=== PATIENT | female | born 1945 | race Caucasian/White ===

== ENCOUNTER 2025-01-07 07:36 | Outpatient (REF) | payer OTHER, SELFPAY ==
--- OUTSIDE RECORDS SUMMARY | 2024-01-28 10:06 | XMS_ITS | Encounter Summary ---
Author Organization [facility] Address [address] [place] [address] Care Team Providers Care [employer] French Teacher Name Role Phone Lee Lindsay MD Primary Care Provider Encounter Details Date Type Department Care Team (Late st Contact Info) Description 01/28/2024 10:06 AM EDT Hospital Encounter TH HISTORIC ENCOUNTERS EASTERN CONVERSION ONLY Mayuri Warner MD [address] [place] [address] Social History Tobacco Use Types Packs/Day Years Used Date Smoking Tobacco: Never Smokeless Tobacco: Never Alcohol Use Standard Drinks/Week Comments Yes 1 (1 standard drink = 0.6 oz pur e alcohol) rare Interpersonal Safety Answer Date Record ed Physical Abuse 12/18/2024 Verbal Abuse 12/18/2024 Comments Unknown Sex and Gender Information [...] COVID infection and shingles after traveling to [place] few weeks ago PAST MEDICAL HISTORY: Past [...] LDH beta-2 microglobulin prior to next visit Mayuri Warner MD documented in this encounter Plan of Treatment Upcoming Encounters Date Type Department Care Team (Late st Contact Info) Description 01/19/2025 10:30 AM EDT Office Visit [facility] Hematology Oncology [address] [place] [phone] Mayuri Warner MD [address] [place] [address] 04/01/2025 11:00 AM EST Office Visit Gastroenterology - [place] 175 [facility] [address] [facility] [address] [place] [phone] Ashli Rey NP [address] [address] documented as of this encounter Visit Diagnoses Not on filedocumented in this encounter Care Teams [employer] French Teacher Relationship Specialty Start Date End Date Lee Lindsay MD [address] [address] PCP - General Internal Medicine 04/26/18 documented as of this encounter
--- NOTE | ~2025-01-07 | XR_ITS ---
CLINICAL HISTORY: M25.559 - Pain in unspecified hip 1 view pelvis Comparison: None provided Findings: No acute fracture or dislocation. Mild degenerative changes of both hips. Mild degenerative changes of the pubic symphysis. Enthesopathy at the right anterior iliac bone. Phleboliths project over the pelvis. IMPRESSION: 1. Mild degenerative changes of both hips. 2. Mild degenerative changes of the pubic symphysis. This document has been electronically signed by: David Johnson DO on 01/08/2025 14:13:24
--- OUTSIDE RECORDS SUMMARY | 2025-01-07 07:42 | XMS_ITS ---
Author Name [facility] Organization Unknown History of Medication Use Medication Directions Dispensed Refills Start Date End Date Stat us meloxicam (Mobic) 7.5 mg tablet Take 1 tablet (7.5 mg total) by mouth 1 (one) time each day. 04/11/2024 active diclofenac (VOLTAREN) 1 % topical gel Apply 4 g topically 2 times daily. 11/19/2023 active Allergies Allergen Reaction Severity Comment Documented Date Source Statu s METHYLPREDNISOLONE Facial redness 02/05/2019 [facility] active PREDNISONE Angry Other reaction(s): Feeling Irritable 01/11/2016 [facility] active Problems Problem Status Onset Date Problem Type Date of Resoluti on Source Elevated blood pressure, situational active 2018-12-06 [facility]Act [facility] Knee pain, right active 2021-03-01 ProblemAct [facility] Parkinson's disease active 2024-03-17 ProblemAct [facility] Coarse tremors active 2018-07-02 ProblemAct [facility] Immunizations Vaccine Date Source Lot Number Status [employer] SARS-CoV-2 COVID -19, vector-nr, rS-Ad26, preservative free 06/26/2020 [facility] [id number] completed Pneumococcal conjugate 13 va lent (Prevnar 13, PCV13) 2mo and older 02/22/2016 [facility] [id number] complet ed Zoster Live 06/10/2010 [facility] [id number] completed Care Team Organization Name Specialty Phone Email Start Date End Da te [facility] SHANTAL NICOLE Primary Care 02/21/2022 12/03/19 24
--- OUTSIDE RECORDS SUMMARY | 2025-01-07 07:42 | XMS_ITS | Clinical Summary ---
Author Organization [facility] Address [address] [facility] [address] [place] [phone] Phone Care Team Providers Care Supervisor Aircraft Maintenance Name Role Phone Lee Lindsay MD Primary Care Provider [phone] Shady Nova MD Unavailable Allergies Active Allergy Reactions Criticality Noted Date Comments Prednisone Feeling Irritable Low 08/29/2019 Medications sertraline (ZOLOFT) 25 MG tablet Take 25 mg by mouth daily. Active therapeutic multivitamin tablet Take 1 tablet by mouth daily. Active cholecalciferol (VITAMIN D3) 25 MCG (1,000 unit) tablet Take 1,000 Units by mouth daily. Active rasagiline (AZILECT) 1 mgIndications:Parki nson's disease without dyskinesia or fluctuating manifestations Take 1 tablet (1 mg total) by mouth daily. 90 tablet 3 5 Active carbidopa-levodopa (SINEMET CR) 25-100 mg per CR tablet Take 1 tablet by mouth 2 (two) times a day. 180 tablet 3 5 Active Active Problems Problem Noted Date Diagnosed Date Parkinson's disease 06/29/2020 Encounters Date Type Department Care Team Description 10/15/2024 12:00 PM EDT Telemedicine [facility] Department of Neurology [address] [facility], 8th Floor, [address] [place] [address] Cuba Baker MD, PhD Parkinson's disease without dyskinesia or fluctuating manifestations (Primary Dx); Anxiety 10/09/2024 Telephone [facility] Department of Neurology [address] [place] [address], [address] Floor, [address] [place] [address] Cuba Baker MD, PhD from Last 3 Months Immunizations Immunization Administration Dates Next Due COVID-19 (Pre-02/05) Abdulkadir Vaccine, rS-Ad26, P F 06/26/2020 Social History Tobacco Use Types Packs/Day Years Used Date Smoking Tobacco: Never Smokeless Tobacco: Never Tobacco Cessation:Counseling Given: Not Answered Education Answer Date Recorded Are you interested in more education? Not on ann e 08/20/2022 Are you concerned about learning? Not on file 08/20/2022 No 08/20/2022 No 08/20/2022 Digital Access Answer Date Recorded No 09/10/2022 No 09/10/2022 Reliable internet access at home? Not on file 09/10/2022 Device with a working camera? Not on file Comments Unknown Sex and Gender Information Value Date Recorded Sex Assigned at Not on file Legal Sex Female 6:36 PM EST Gender Identity Not on file Sexual Orientation Not on file Last Filed Vital Signs Vital Sign Reading Time Taken Comments Blood Pressure 155/77 05/06/2024 12:56 PM EST Pulse 73 05/06/2024 12:56 PM EST Temperature 36.2 C (97.1 F) 02/07/2023 12:55 PM EDT Respiratory Rate - - Oxygen Saturation 97% 05/06/2024 12:56 PM EST Inhaled Oxygen Concentration - - Weight 57.2 kg (126 lb) 05/06/2024 12:56 PM EST Height 157.8 cm (5' 2.13 ) 02/07/2023 12:55 PM E DT Body Mass Index 22.95 02/07/2023 12:55 PM EDT Plan of Treatment Upcoming Encounters Date Type Department Care Team (Late st Contact Info) Description 04/23/2025 2:30 PM EST Telemedicine [facility] Department of Neurology [address] [place] [address], [address] Floor, [address] [place] [address] Cuba Baker MD, PhD [address] [place] [id number] [email or web address] Maintenance Due Date Last Done Comments Adult Td,Tdap Booster 1945 DEPRESSION SCREENING 1957 HEPATITIS C SCREENING 06/26/1963 PNEUMOCOCCAL VACCINES (50+ years) (1 of 1 - PCV) 06/26/1995 OSTEOPOROSIS SCREENING INITI AL (ONE-TIME) 2010 ZOSTER VACCINES (2 of 3) 08/05/2010 06/10/2010 RSV VACCINE (1 - 1-dose 75+ series) 2020 INFLUENZA VACCINE (#1) 2024 COVID-19 VACCINE (3 - 2024-2 6 season) 2024 05/13/2021, 06/26/2020 LIPID PANEL 07/29/2029 07/29/2024, 07/12/2023 SMOKING STATUS SCREENING (On ce After 26 Yrs) Completed 05/06/2024 HEPATITIS A VACCINES Aged Out No long er eligible based on patient's age to complete this topic HIB VACCINES Aged Out No longer eligi ble based on patient's age to complete this topic MENINGOCOCCAL VACCINES (ACWY) Aged Out No longer eligible based on patient's age to complete this topic MENINGOCOCCAL VACCINES (B) Aged Out N o longer eligible based on patient's age to complete this topic Medical Devices Not on file Insurance [employer] RE[employer] MEDICARE PREFERRED PPO REPLACEMENT [employer] MEDICARE PREFERRED PPO REPLACEMENT [employer]PLAC[employer]PL[employer]PL[employer] Care Teams Supervisor Aircraft Maintenance Relationship Specialty Start Date End Date Lee Lindsay MD [address] [address] PCP - General Internal Medicine 02/10/19 Shady Nova MD 175 [place] [address] Neurology 07/27/22 Additional Source Comments The information contained in this document represents components of the legal health record. It is not the complete legal health record.[facility]
--- OUTSIDE RECORDS SUMMARY | 2025-01-07 07:42 | XMS_ITS | Clinical Summary ---
Author Organization [facility] Address [address] [place] [address] Care Team Providers Care Flight Security Specialist Name Role Phone Lee Lindsay MD Primary Care Provider Unavailab le Allergies Active Allergy Reactions Criticality Noted Date Comments Prednisone Low 07/23/2018 Medications Medication Sig Dispensed Refills Start Date End Date Status Rasagiline Mesylate (AZILECT) 1 MG TABS tablet Take 1 tablet (1 mg total) by mouth daily. 0 Active sertraline (ZOLOFT) 25 MG tablet Take 0.5 tablets (12.5 mg total) by mouth daily. 0 Active Multiple Vitamin (MULTI-VITAMIN DAILY PO) Take by mouth. 0 Active vitamin D3 (VITAMIN D3) 25 MCG (1000 UT) tablet Take 1 tablet (1,000 Units total) by mouth daily. 0 Active carbidopa (LODOSYN) 25 MG tablet Take 1 tablet by mouth 2 (two) times a day. 0 Active Active Problems No known active problems Social History Tobacco Use Types Packs/Day Years Used Date Smoking Tobacco: Never Smokeless Tobacco: Never Alcohol Use Standard Drinks/Week Comments Yes 1 (1 standard drink = 0.6 oz pur e alcohol) Sex and Gender Information Value Date Recorded Sex Assigned at Not on file Gender Identity Not on file Sexual Orientation Not on file Job Start Date Occupation Industry Not on file Not on file Not on file Last Filed Vital Signs Vital Sign Reading Time Taken Comments Blood Pressure 123/68 01/28/2024 10:16 AM EDT Pulse 75 01/28/2024 10:16 AM EDT Temperature 36.8 C (98.3 F) 01/28/2024 10:16 AM EDT Respiratory Rate - - Oxygen Saturation 97% 01/28/2024 10:16 AM EDT Inhaled Oxygen Concentration - - Weight 56.9 kg (125 lb 6.4 oz) 01/28/2024 10:16 AM EDT Height 157.5 cm (5' 2 ) 01/28/2024 10:16 AM EDT Body Mass Index 22.94 01/28/2024 10:16 AM EDT Plan of Treatment Health Maintenance Due Date Last Done Comments Hepatitis C Screening 1945 Depression Screening 1957 Preventative Health Evaluation 06/26/1963 DTap / Tdap / Td (1 - Tdap) 1964 Shingrix-Zoster Vaccine (1 of 2) 06/26/1995 Fall Risk Assessment 2010 Osteoporosis Screening (DEXA Scan) 2010 Pneumococcal Vaccine (2 of 2 - PPSV23 or PCV20) 02/21/2017 02/22/2016 RSV Adult > 60+ Yrs or Pregn ant (1 - 1-dose 75+ series) 2020 COVID-19 Vaccine (2 - 2024-2 6 season) 2024 06/26/2020 Influenza Vaccine (#1) 2024 Hepatitis B Vaccines Aged Out No long er eligible based on patient's age to complete this topic RSV Ped < 20 months Aged Out No longe r eligible based on patient's age to complete this topic Care Teams Flight Security Specialist Relationship Specialty Start Date End Date Lee Lindsay MD PCP - General Internal Medicine 07/23/18
--- OUTSIDE RECORDS SUMMARY | 2025-01-07 07:42 | XMS_ITS | Clinical Summary ---
Author Organization [facility] Address [address] [place] [address] Care Team Providers Care Manager Of Software Development Name Role Phone Lee Lindsay MD Primary Care Provider [phone] Allergies Active Allergy Reactions Criticality Noted Date Comments Prednisone Low 01/11/2016 Angry Other reaction(s): Feeling Irritable Medications MULTIVITAMIN ORAL Take by mouth daily. Active CHOLECALCIFEROL , VITAMIN D3, ORAL Take 1,000 Units by mouth daily. Active sertraline (ZOLOFT) 25 mg tablet Take 1 tablet (25 mg total) by mouth 1 (one) time each day. 90 tablet 1 5 Active rasagiline (AZILECT) 1 mg tablet 5 Active carbidopa-levod opa CR (SINEMET CR) 25-100 mg per CR tablet 5 Active polyethylene glycol (Golytely) 236-22.74-6.74 -5.86 gram solution Take 4L by mouth once for one dose. May substitue any PEG. Starting at 2PM the day before your procedure drink 1 8oz glasses at your own pace until you complete half of the gallon. Finish 2nd half of the gallon at 8PM. 4000 mL 5 Active bisacodyL (DULCOLAX) 5 mg EC tablet Take 2 tablets by mouth right before beginning bowel prep. See instructions provided by the office 2 tablet 5 Active LORazepam (ATIVAN) 0.5 mg tablet TAKE 1 TAB 1 HOUR PRIOR TO PROCEDURE. DO NOT TAKE AND DRIVE Active Active Problems Problem Noted Date Diagnosed Date COVID-19 12/10/2024 Osteopenia of spine 07/23/2024 Trochanteric bursitis of right hip 05/07/2024 Assessment & Plan (08/18/2024 3:34 PM EDT): Ongoing pain in the right hip area, failed cortisone shot due to pain .plans to do an IR guided procedure. 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 Vitamin D deficiency 03/29/2017 Encounters Date Type Department Care Team Description 12/26/2024 Telephone Gastroenterology - [address] [address] Cecile Velasquez MD 12/18/2024 12:45 PM EDT Anesthesia Event [facility] Endoscopy [address] [place] [address] Krishna Nicole MD 12/18/2024 12:17 PM EDT - 12/18/2024 11:59 PM EDT Hospital Encounter [facility] Endoscopy [address] [place] [address] Krishna Nicole MD Sampson, Joanna, MD Couture, Alison, CRNA Nausea; Dyspepsia; Personal history of hyperplastic colon polyps Discharge Disposition: Home or Self Care 12/12/2024 9:40 AM EDT Office Visit Gastroenterology - [address] [facility] [address] [place] [address] Cecile Velasquez MD Dyspepsia (Primary Dx); Colon cancer screening 12/12/2024 Telephone Gastroenterology - [address] [place] [phone] Cecile Velasquez MD 12/04/2024 Telephone Gastroenterology - [address] [address] Cecile Velasquez MD from Last 3 Months Immunizations Name Administration Dates Next Due Kilopass/WEISSENHAUS SARS-CoV-2 COVID -19, vector-nr, rS-Ad26, preservative free 06/26/2020 Pneumococcal conjugate 13 va lent (Prevnar 13, PCV13) 2mo and older 02/22/2016 Zoster Live 06/10/2010 Surgical History Surgery Date Site/Laterality Comments CYST REMOVAL PROCEDURE:CYST REMOVAL;COMMENT:from right breast COLONOSCOPY 04/16/2015 - 05/16/2015 Dr. 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 DX:Monoclonal B-cell lymphocytosis Vitamin D deficiency 03/29/2017 DX:Vitamin D deficiency Covid-19 DX:COVID-19 Monoclonal B-cell lymphocytosis DX:Monoclonal B-cell lymphocytosis Hypertension DX:Hypertension Hyperlipidemia DX:Hyperlipidemi a Hematuria DX:Hematuria Cervicalgia DX:Cervicalgia Parkinsonian syndrome (CMS/H CC V24, CMS/HCC V28) DX:Parkinsonian syndrome (HC C) Colon polyp Family History Medical History Relation Name Comments No Known Problems Brother No Known Problems Daughter No Known Problems Father No Known Problems Mother No Known Problems Other No Known Problems Sister No Known Problems Son Autoimmune disease Neg Hx Breast cancer Neg Hx Colon cancer Neg Hx Coronary artery disease Neg Hx Diabetes Neg Hx Heart attack Neg Hx Heart failure Neg Hx Hyperlipidemia Neg Hx Hypertension Neg Hx Mental illness Neg Hx Prostate cancer Neg Hx Sleep apnea Neg Hx Thyroid disease Neg Hx Relation Name Status Comments Brother Daughter Father Mother Other Sister Son Social History Tobacco Use Types Packs/Day Years Used Date Smoking Tobacco: Never Smokeless Tobacco: Never Tobacco Cessation:Counseling Given: Not Answered Alcohol Use Standard Drinks/Week Comments Yes 1 (1 standard drink = 0.6 oz pur e alcohol) rare Interpersonal Safety Answer Date Record ed Physical Abuse 12/18/2024 Verbal Abuse 12/18/2024 Comments Unknown Sex and Gender Information Value Date Recorded Sex Assigned at Not on file Legal Sex Female 4:33 PM EST Gender Identity Not on file Sexual Orientation Not on file Obstetrics History Last Filed Vital Signs Vital Sign Reading Time Taken Comments Blood Pressure 111/60 12/18/2024 1:32 PM EDT Pulse 69 12/18/2024 1:32 PM EDT Temperature 36.1 C (97 F) 12/18/2024 1:12 PM EDT Respiratory Rate 14 12/18/2024 1:32 PM EDT Oxygen Saturation 98% 12/18/2024 1:32 PM EDT Inhaled Oxygen Concentration - - Weight 56.7 kg (125 lb) 12/18/2024 12:33 PM EDT Height 160 cm (5' 3 ) 12/18/2024 12:33 PM EDT Body Mass Index 22.14 12/18/2024 12:33 PM EDT Plan of Treatment Upcoming Encounters Date Type Department Care Team (Late st Contact Info) Description 01/19/2025 10:30 AM EDT Office Visit [facility] Hematology Oncology [address] [place] [phone] Mayuri Warner MD [address] [place] [address] 04/01/2025 11:00 AM EST Office Visit Gastroenterology - [place] [facility] [address] [address] Ashli Rey NP [address] [address] Health Maintenance Due Date Last Done Comments DTaP,Tdap,and Td Vaccines (1 - Tdap) 1964 Zoster Vaccines (1 of 2) 08/05/2010 06/10/2010 Pneumococcal Vaccine: 50+ Years (2 of 2 - PPSV23) 02/21/2017 02/22/2016 Hepatitis C Screening 03/10/2020 Social Influencers of Health Screening 03/10/2020 RSV Immunization Adult Patients (1 - 1-dose 75+ series) 2020 COVID-19 Vaccine (3 - season) 2024 05/13/2021, 06/26/2020 Influenza Vaccine (#1) 2024 Hypertension/CHF/CAD Annual BMP Blood Test 07/29/2025 07/29/2024, 07/12/2023 Medicare Annual Wellness Visit 08/18/2025 08/18/2024 Falls Risk Assessment 12/18/2025 12/18/2024 Cholesterol Screening (Lipid Panel) 07/29/2029 07/29/2024, 07/12/2023 Osteoporosis Screening (Bone Density Screening) 05/03/2032 05/03/2022, 04/19/2020 Breast Cancer Screening Discontinued 11/20/19 24, 10/19/2022, 09/20/2021, Additional history exists Depression Screening Completed 08/18/2024 Colorectal Cancer Screening: Colonoscopy Discontinued 12/18/2024 HIB Vaccines Aged Out No longer eligi ble based on patient's age to complete this topic HPV Vaccines Aged Out No longer eligi ble based on patient's age to complete this topic Hepatitis A Vaccines Aged Out No long er eligible based on patient's age to complete this topic Hepatitis B Vaccines Aged Out No long er eligible based on patient's age to complete this topic IPV Vaccines Aged Out No longer eligi ble based on patient's age to complete this topic MMR Vaccines Aged Out No longer eligi ble based on patient's age to complete this topic Meningococcal ACWY Vaccine Aged Out N o longer eligible based on patient's age to complete this topic Meningococcal B Vaccine Aged Out No l onger eligible based on patient's age to complete this topic RSV Immunization Patients Under 20 months Aged Out No longer eligible based on patient's age to complete this topic Varicella Vaccines Aged Out No longer eligible based on patient's age to complete this topic Procedures Procedure Name Priority Date/Time Associated Diagnosis Comments COLONOSCOPY Routine 12/18/2024 1:11 PM EDT Personal history of hyperplastic colon polyps EGD Routine 12/18/2024 1:11 PM EDT Nausea Dyspepsia TISSUE EXAM Routine 12/18/2024 12:51 PM EDT Nausea Dyspepsia Personal history of hyperplastic colon polyps COMPREHENSIVE METABOLIC PANEL Routine 07/29/2024 9:35 AM EDT Preventative health care LIPID PANEL WITH REFLEX TO DIRECT LDL Routine 07/29/2024 9:35 AM EDT Preventative health care [facility] SCREENING DIGITAL Routine 11/20/2023 10:36 AM EDT Encounter for screening mammogram for malignant neoplasm of breast [facility] DEXA AXIAL SKELETON Routine 05/03/2022 11:57 AM EST Encounter for screening for osteoporosis from Last 3 Months or Most Recently Relevant to Health Maintenance Results * COLONOSCOPY Anesthesia - MAC; [facility] ENDOSCOPY (12/18/2024 1:11 PM EDT) Anatomical Region Laterality Modality Endoscopy 12/18/2024 12:5 6 PM EDT Impressions 12/18/2024 1:13 PM EDT - The examined portion of the ileum was normal. - One 6 mm polyp in the cecum, removed with a cold snare. Resected and retrieved. - Two 1 to 4 mm polyps in the transverse colon, removed with a cold snare. Resected and retrieved. - One 2 mm polyp in the descending colon, removed with a cold snare. Resected and retrieved. - Diverticulosis in the sigmoid colon. - Internal hemorrhoids. Recommendation: - Await pathology results. - Repeat colonoscopy is not recommended for surveillance. Narrative 12/18/2024 1:13 PM EDT [facility] GI Patient Name: Virginia Gonzalez Procedure Date: 12/18/2024 12:56 PM Date of : 1945 Age: 79 Gender: Female Note Status: Finalized Attending MD: Cecile Velasquez MD, Procedure Date No Time: 12/18/2024 Procedure: Colonoscopy Indications: High risk colon cancer surveillance: Personal history of colonic polyps Providers: Cecile Velasquez MD Referring MD: Lee Lindsay MD Medicines: Propofol per Anesthesia Complications: No immediate complications. Estimated Blood Loss: Estimated blood loss: none. Procedure: Pre-Anesthesia Assessment: - ASA Grade Assessment: III - A patient with severe systemic disease. After I obtained informed consent, the scope was passed under direct vision. Throughout the procedure, the patient's blood pressure, pulse, and oxygen saturations were monitored continuously.The Colonoscope was introduced through the anus and advanced to the terminal ileum. The colonoscopy was performed without difficulty. The patient tolerated the procedure well. The quality of the bowel preparation was excellent. Findings: The perianal and digital rectal examinations were normal. The terminal ileum appeared normal. A 6 mm polyp was found in the cecum. The polyp was sessile. The polyp was removed with a cold snare. Resection and retrieval were complete. Two sessile polyps were found in the transverse colon. The polyps were 1 to 4 mm in size. These polyps were removed with a cold snare. Resection and retrieval were complete. A 2 mm polyp was found in the descending colon. The polyp was sessile. The polyp was removed with a cold snare. Resection and retrieval were complete. A few small-mouthed diverticula were found in the sigmoid colon. Internal hemorrhoids were found during retroflexion. The hemorrhoids were Grade I (internal hemorrhoids that do not prolapse). Procedure Code(s): --- Professional --- 29655, Colonoscopy, flexible; with removal of tumor(s), polyp(s), or other lesion(s) by snare technique Diagnosis Code(s): --- Professional --- Z86.010, Personal history of colonic polyps D12.0, Benign neoplasm of cecum D12.4, Benign neoplasm of descending colon D12.3, Benign neoplasm of transverse colon (hepatic flexure or splenic flexure) CPT copyright 2020 [employer]. All rights reserved. The codes documented in this report are preliminary and upon gambling dealer review may be revised to meet current compliance requirements. Cecile Velasquez MD 12/18/2024 1:13:31 PM This report has been signed electronically.Cecile Velasquez MD Number of Addenda: 0 Note Initiated On: 12/18/2024 12:56 PM Scope In: Scope Out: Endoscopy Department at [facility] - [address] [place] [phone] Procedure Note Cecile Velasquez MD - 12/18/2024 [facility] GI Patient Name: Virginia Gonzalez Procedure Date: 12/18/2024 12:56 PM Date of : 1945 Age: 79 Gender: Female Note Status: Finalized Attending MD: Cecile Velasqeuz MD, Procedure Date No Time: 12/18/2024 Procedure: Colonoscopy Indications: High risk colon cancer surveillance: Personalhistory of colonic polyps Providers: Cecile Velasquez MD Referring MD: Lee Lindsay MD Medicines: Propofol per Anesthesia Complications: No immediate complications. Estimated Blood Loss: Estimated blood loss: none. Procedure: Pre-Anesthesia Assessment: - ASA Grade Assessment: III - A patient with severe systemic disease. After I obtained informed consent, the scope was passed under direct vision. Throughout theprocedure, the patient's blood pressure, pulse, and oxygen saturations were monitored continuously.The Colonoscope was introduced through the anus and advanced to the terminal ileum. The colonoscopy was performed without difficulty. The patient tolerated the procedure well. The quality of the bowel preparation was excellent. Findings: The perianal and digital rectal examinations were normal. The terminal ileum appeared normal. A 6 mm polyp was found in the cecum. The polyp was sessile. The polyp was removed with a cold snare. Resection and retrieval were complete. Two sessile polyps were found in the transversecolon. The polyps were 1 to 4 mm in size. These polypswere removed with a cold snare. Resection and retrieval were complete. A 2 mm polyp was found in the descending colon. The polyp was sessile. The polyp was removed with acold snare. Resection and retrieval were complete. A few small-mouthed diverticula were found in the sigmoid colon. Internal hemorrhoids were found duringretroflexion. The hemorrhoids were Grade I (internal hemorrhoids that do not prolapse). Procedure Code(s): --- Professional --- 71877, Colonoscopy, flexible; with removal of tumor(s), polyp(s), or other lesion(s) by snare technique Diagnosis Code(s): --- Professional --- Z86.010, Personal history of colonic polyps D12.0, Benign neoplasm of cecum D12.4, Benign neoplasm of descending colon D12.3, Benign neoplasm of transverse colon (hepatic flexure or splenic flexure) CPT copyright 2020 [employer]. All rights reserved. The codes documented in this report are preliminary and upon gambling dealer reviewmay be revised to meet current compliance requirements. Cecile Velasquez MD 12/18/2024 1:13:31 PM This report has been signed electronically.Cecile Velasquez MD Number of Addenda: 0 Note Initiated On: 12/18/2024 12:56 PM Scope In: Scope Out: Endoscopy Department at [facility] - [address] [place] [phone] IMPRESSION: - The examined portion of the ileum was normal. - One 6 mm polyp in the cecum, removed with a cold snare. Resected and retrieved. - Two 1 to 4 mm polyps in the transverse colon, removed with a cold snare. Resected andretrieved. - One 2 mm polyp in the descending colon, removedwith a cold snare. Resected and retrieved. - Diverticulosis in the sigmoid colon. - Internal hemorrhoids. Recommendation: - Await pathology results. - Repeat colonoscopy is not recommended for surveillance. Cecile Velasquez MD GI~PROCEDURE ORDERABLES Final Result * EGD Anesthesia - MAC; [facility] ENDOSCOPY (12/18/2024 1:11 PM EDT) Anatomical Region Laterality Modality Endoscopy 12/18/2024 12:4 0 PM EDT Impressions 12/18/2024 12:56 PM EDT - Normal esophagus. - Multiple fundic gland polyps. - Normal mucosa was found in the entire stomach. Biopsied. - Normal examined duodenum. Recommendation: - Continue present medications. - Await pathology results. Narrative 12/18/2024 12:56 PM EDT [facility] GI Patient Name: Virginia Gonzalez Procedure Date: 12/18/2024 12:40 PM Date of : 1945 Age: 79 Gender: Female Note Status: Finalized Attending MD: Cecile Velasquez MD, Procedure Date No Time: 12/18/2024 Procedure: Upper GI endoscopy Indications: Dyspepsia, Nausea Providers: Cecile Velasquez MD Referring MD: Lee Lindsay MD Medicines: Propofol per Anesthesia Complications: No immediate complications. Estimated Blood Loss: Estimated blood loss: none. Procedure: Pre-Anesthesia Assessment: - ASA Grade Assessment: III - A patient with severe systemic disease. After obtaining informed consent, the endoscope was passed under direct vision. Throughout the procedure, the patient's blood pressure, pulse, and oxygen saturations were monitored continuously.The Olympus Gastroscope was introduced through the mouth, and advanced to the second part of duodenum. The upper GI endoscopy was accomplished without difficulty. The patient tolerated the procedure well. Findings: The esophagus was normal. Multiple small sessile fundic gland polyps were found in the gastric body. Normal mucosa was found in the entire examined stomach. Biopsies were taken with a cold forceps for histology. The examined duodenum was normal. Procedure Code(s): --- Professional --- 18905, Esophagogastroduodenoscopy, flexible, transoral; with biopsy, single or multiple Diagnosis Code(s): --- Professional --- K31.7, Polyp of stomach and duodenum R10.13, Epigastric pain R11.0, Nausea CPT copyright 2020 [employer]. All rights reserved. The codes documented in this report are preliminary and upon gambling dealer review may be revised to meet current compliance requirements. Cecile Velasquez MD 12/18/2024 12:55:56 PM This report has been signed electronically.Cecile Velasquez MD Number of Addenda: 0 Note Initiated On: 12/18/2024 12:40 PM Scope In: Scope Out: Endoscopy Department at [facility] - [address] [place] [phone] Procedure Note Cecile Velasquez MD - 12/18/2024 [facility] GI Patient Name: Virginia Gonzalez Procedure Date: 12/18/2024 12:40 PM Date of : 1945 Age: 79 Gender: Female Note Status: Finalized Attending MD: Cecile Velasquez MD, Procedure Date No Time: 12/18/2024 Procedure: Upper GI endoscopy Indications: Dyspepsia, Nausea Providers: Cecile Velasquez MD Referring MD: Lee Lindsay MD Medicines: Propofol per Anesthesia Complications: No immediate complications. Estimated Blood Loss: Estimated blood loss: none. Procedure: Pre-Anesthesia Assessment: - ASA Grade Assessment: III - A patient with severe systemic disease. After obtaining informed consent, the endoscope was passed under direct vision. Throughout theprocedure, the patient's blood pressure, pulse, and oxygen saturations were monitored continuously.The Olympus Gastroscope was introduced through the mouth, and advanced to the second part of duodenum. The upperGI endoscopy was accomplished without difficulty. The patient tolerated the procedure well. Findings: The esophagus was normal. Multiple small sessile fundic gland polyps werefound in the gastric body. Normal mucosa was found in the entire examined stomach. Biopsies were taken with a cold forcepsfor histology. The examined duodenum was normal. Procedure Code(s): --- Professional --- 19706, Esophagogastroduodenoscopy, flexible, transoral; with biopsy, single or multiple Diagnosis Code(s): --- Professional --- K31.7, Polyp of stomach and duodenum R10.13, Epigastric pain R11.0, Nausea CPT copyright 2020 [employer]. All rights reserved. The codes documented in this report are preliminary and upon gambling dealer reviewmay be revised to meet current compliance requirements. Cecile Velasquez MD 12/18/2024 12:55:56 PM This report has been signed electronically.Cecile Velasquez MD Number of Addenda: 0 Note Initiated On: 12/18/2024 12:40 PM Scope In: Scope Out: Endoscopy Department at [facility] - [address] [place] [id number] IMPRESSION: - Normal esophagus. - Multiple fundic gland polyps. - Normal mucosa was found in the entire stomach. Biopsied. - Normal examined duodenum. Recommendation: - Continue present medications. - Await pathology results. Cecile Velasquez MD GI~PROCEDURE ORDERABLES Final Result * Tissue exam (12/18/2024 12:51 PM EDT) Final Diagnosis A. Gastric, Body, random biopsies: - Gastric antral mucosa with rare activity. - Gastric oxyntic mucosa with no specific pathologic changes. - No Helicobacter pylori organisms are morphologically identified. B. Large Intestine, Cecum, polyp: - Sessile serrated lesion (polyp). C. Large Intestine, Transverse Colon, polyps x2: - Sessile serrated lesion (polyp). - Tubular adenoma. D. Large Intestine, Left/Descending Colon, polyp: - Hyperplastic polyp. 12/19/2024 10:55 AM EDT [facility] Gross Description A. Gastric, Body, random biopsies: Labeled gastric body random . Received in formalin are four irregular beal mucosal tissue fragments, ranging from 0.1 cm to 0.3 cm in greatest dimension, which are wrapped in paper and submitted in toto in one cassette, four pieces, multiple levels on one side. B. Large Intestine, Cecum, polyp: Labeled colon cecum polyp . Received in formalin are seven irregular disrupted beal mucosal tissue fragments, ranging from 0.1 cm to 0.4 cm in greatest dimension, which are wrapped in paper and submitted in toto in one cassette, seven pieces, multiple levels on one slide. C. Large Intestine, Transverse Colon, polyp x 2: Labeled trans colon polyp x 2 . Received in formalin are nine irregular beal mucosal tissue fragments, ranging from less than 0.1 cm to 0.3 cm in greatest dimension, which are wrapped in paper and submitted in toto in two cassettes, four pieces and five pieces, respectively, multiple levels in each slide. D. Large Intestine, Left/Descending Colon, polyp: Labeled descending colon polyp . Received in formalin is a 0.7 cm irregular beal mucosal tissue fragment which is wrapped in paper and submitted in toto in one cassette, one piece, multiple levels on one slide. VICTOR MANUEL 12/19/2024 10:55 AM T [facility] Disclaimer Unless otherwise specified, all tissue is 10% NB formalin fixed and paraffin embedded. 12/19/2024 10:55 AM [facility] Tissue Gastric corpus structure / Unknown 12/18/2024 12:51 PM EDT 12/18/2024 3:02 PM EDT Tissue specimen (specimen) Cecum structure / Unknown 12/18/2024 1:03 PM EDT 12/18/2024 3:02 PM EDT Tissue specimen (specimen) Transverse colon structure / Unknown 12/18/2024 1:07 PM EDT 12/18/2024 3:02 PM EDT Tissue specimen (specimen) Descending colon structure / Unknown 12/18/2024 1:07 PM EDT 12/18/2024 3:02 PM EDT us Cecile Velasquez MD LAB PATHOLOGY ORDERABLES Final Result [facility] [address] [place] [address], [place] [phone] * (ABNORMAL) Lipid panel with reflex to direct LDL (07/29/2024 9:35 AM EDT) Cholesterol 207(H) 0 - 200 mg/dL LAB CHEMISTRY METHOD 07/29/2024 11:49 AM [facility] Triglycerides 162(H) 0 - 150 mg/dL LAB CHEMISTRY METHOD 07/29/2024 11:49 AM [facility] HDL 44 >=40 mg/dL LAB CHEMISTRY METHOD 07/29/2024 11:49 AM [facility] LDL Calculated 131(H) 0 - 100 mg/dL LAB CHEMISTRY METHOD 07/29/2024 11:49 AM [facility] VLDL Cholesterol Rommel 32.4 mg/dL LAB CHEMISTRY METHOD 07/29/2024 11:49 AM [facility] Non HDL Chol. (LDL+VLDL) 163(H) <145 mg/dL LAB CHEMISTRY METHOD 07/29/2024 11:49 AM [facility] Chol/HDL Ratio 4.7(H) 0.0 - 4.4 LAB CHEMISTRY METHOD 07/29/2024 11:49 AM [facility] Blood Venous blood specimen / Unknown Venipuncture / Unknown 07/29/2024 9:35 AM EDT 07/29/2024 11:29 AM EDT Lee Lindsay MD LAB BLOOD ORDERABLES Final Resul t [facility] [address] [place] [address], [place] [phone] * Comprehensive metabolic panel (07/29/2024 9:35 AM EDT) Sodium 141 133 - 145 mmol/L LAB CHEMISTRY METHOD 07/29/2024 11:49 AM [facility] Potassium 4.4 3.5 - 5.5 mmol/L LAB CHEMISTRY METHOD 07/29/2024 11:49 AM [facility] Chloride 106 96 - 110 mmol/L LAB CHEMISTRY METHOD 07/29/2024 11:49 AM [facility] CO2 32 21 - 32 mmol/L LAB CHEMISTRY METHOD 07/29/2024 11:49 AM [facility] Anion Gap 3 3 - 11 LAB CHEMISTRY METHOD 07/29/2024 11:49 AM [facility] Glucose 88 70 - 100 mg/dL LAB CHEMISTRY METHOD 07/29/2024 11:49 AM [facility] BUN 18 5 - 25 mg/dL LAB CHEMISTRY METHOD 07/29/2024 11:49 AM [facility] Creatinine 0.68 0.50 - 1.10 mg/dL LAB CHEMISTRY METHOD 07/29/2024 11:49 AM [facility] eGFR 89 >=60 mL/min/1. 73m2 LAB CHEMISTRY METHOD 07/29/2024 11:49 AM [facility] Comment:Calculation based on the Chronic Kidney Disease Epidemiology Collaboration (CKD-EPI) equation refit without adjustment for race. BUN/Creatinine Ratio 26.5 LAB CHEMISTRY METHOD 07/29/2024 11:49 AM [facility] Calcium 9.3 8.5 - 10.5 mg/dL LAB CHEMISTRY METHOD 07/29/2024 11:49 AM [facility] AST (SGOT) 22 10 - 42 unit/L LAB CHEMISTRY METHOD 07/29/2024 11:49 AM [facility] ALT (SGPT) 17 10 - 60 unit/L LAB CHEMISTRY METHOD 07/29/2024 11:49 AM [facility] Alkaline Phosphatase 110 42 - 121 unit/L LAB CHEMISTRY METHOD 07/29/2024 11:49 AM [facility] Total Protein 6.6 6.0 - 8.0 g/dL LAB CHEMISTRY METHOD 07/29/2024 11:49 AM [facility] Albumin 3.9 3.2 - 5.0 g/dL LAB CHEMISTRY METHOD 07/29/2024 11:49 AM [facility] Total Bilirubin 0.7 0.0 - 1.4 mg/dL LAB CHEMISTRY METHOD 07/29/2024 11:49 AM [facility] Blood Venous blood specimen / Unknown Venipuncture / Unknown 07/29/2024 9:35 AM EDT 07/29/2024 11:29 AM EDT us Lee Lindsay MD LAB BLOOD ORDERABLES Final Resul t [facility] [address] [place] [address], * ADORE SCREENING DIGITAL (11/20/2023 10:36 AM EDT) Anatomical Region Laterality Modality Mammography 11/20/2023 10:0 8 AM EDT Narrative 11/20/2023 10:36 AM EDT [facility] Diagnostic Imaging Department [address] [place] [address] Patient: VIRGINIA GONZALEZ Ama /Age/Sex: 1945 - 78 - F Unit#: [id number] Location/Status: SPDIMAM/REG CLI Mnemonic/Ordering Site: [facility] Ordering Physician: BHAVIN VASQUEZ MD Adore Screening Digital - 11/20/23 - 1025 Report Status:Signed HISTORY: The patient is a 78-year-old female presenting for routine screening mammography. The patient underwent excisional biopsy of the right breast in 2005, pathology benign. FINDINGS: Full-field digital mammography of the breasts bilaterally consisting of tomosynthesis in MLO and CC projection is performed in the [employer] 2000-D unit. Computer aided detection utilizing the iCAD system was utilized. The breasts are again seen to be composed of a combination of fatty and fibroglandular elements (scattered areas of fibroglandular density, category B density as calculated with iReveal Volpara software), as also demonstrated on prior studies most recently 10/19/2022 and most remotely 02/21/2016. Bilateral vascular calcifications, as well as a few scattered benign punctate calcifications, are stable. There is no suspicious cluster of microcalcifications, mass, or area of architectural distortion. There is no skin thickening or nipple retraction. IMPRESSION: No mammographic evidence of malignancy. A negative mammogram in the presence of a clinically suspicious palpable abnormality does not preclude the possibility of malignancy or alter the indications for biopsy. BIRADS Code Class 2: Benign Finding PQRI CPT II 3342F Code 14887, 23812 PQRI 225 CPT II 7025F Dictating Physician: DAYTON BOURGEOIS MD Electronically Signed by: DAYTON BOURGEOIS MD Dic Date/Time: 11/20/23 1032 Sign date/Time: 11/20/23 1036 Procedure Note Dayton Bourgeois MD - 01/30/2024 [facility] Diagnostic Imaging Department [address] [place] [address] Patient: VIRGINIA GONZALEZ /Age/Sex: 1945 - 78 - F Unit#: [id number] Location/Status: [facility] Mnemonic/Ordering Site: [facility] Ordering Physician: BHAVIN VASQUEZ MD Adore Screening Digital - 11/20/23 - 1025 Report Status:Signed HISTORY: The patient is a 78-year-old female presenting for routinescreening mammography. The patient underwent excisional biopsy of the right breastin 2005, pathology benign. FINDINGS: Full-field digital mammography of the breasts bilaterallyconsisting of tomosynthesis in MLO and CC projection is performed in the [employer] 2000-D unit. Computer aided detection utilizing the iCAD system wasutilized. The breasts are again seen to be composed of a combination of fatty and fibroglandular elements (scattered areas of fibroglandular density,category B density as calculated with [employer] Energypara software), as also demonstratedon prior studies most recently 10/19/2022 and most remotely 02/21/2016.Bilateral vascular calcifications, as well as a few scattered benign punctate calcifications, are stable. There is no suspicious cluster of microcalcifications, mass, or area of architectural distortion. There isno skin thickening or nipple retraction. IMPRESSION: No mammographic evidence of malignancy. A negative mammogram in the presence of a clinically suspicious palpable abnormality does not preclude the possibility of malignancy or alter the indications for biopsy. BIRADS Code Class 2: Benign Finding PQRI CPT II 3342F Code 67266, 70717 PQRI 225 CPT II 7025F Dictating Physician: DAYTON BOURGEOIS MD Electronically Signed by: DAYTON BOURGEOIS MD Dic Date/Time: 11/20/23 1032 Sign date/Time: 11/20/23 1036 Bhavin Vasquez MD IMG BI PROCEDURES Final Result * [facility] DEXA AXIAL SKELETON (05/03/2022 11:57 AM EST) Anatomical Region Laterality Modality Mammography 05/03/2022 11:0 5 AM EST Narrative 05/03/2022 11:57 AM EST [facility] Diagnostic Imaging Department [address] [place] [address] Patient: ROMARIOVIRGINIA Serrato D.O.B./Age/Sex: 1945 - 76 - F Unit#: [id number] Location/Status: [facility]/REG CLI Mn[facility]onic[facility] Ordering Physician: BHAVIN VASQUEZ MD Adore Dexa Axial Skeleton - 01/18/23 - 1130 HISTORY: The patient is a 76-year-old postmenopausal female with clinical concern for metabolic bone disease. FINDINGS: Dual energy x-ray absorptiometry of the lumbar spine and femurs is performed. The mean bone mineral density at L1-L4 is 1.272 gm/cm2 which is 108% of that of young normals and 132% of that of age matched controls. This yields a T-score of 0.8 and a Z-score of 2.6 and there is therefore no evidence of osteoporosis or osteopenia here. The mean bone mineral density of the femurs bilaterally is 0.911 gm/cm2 which is 90% of that of young normals and 118% of that of age matched controls. This yields a T-score of -0.8 and a Z-score of 1.1 and there is therefore no evidence of osteoporosis or osteopenia here. However, the T-score of the right femoral neck is -1.5 and that of the left femoral neck is -1.2 which is diagnostic of osteopenia. IMPRESSION: 1. Osteopenia. There has been an increase of 4.8% in bone mineral density in the lumbar spine since the prior examination of 04/19/2020. There has been an increase of 2.6% in bone mineral density in the right femur and an increase of 3.3% in bone mineral density in the left femur. 2. FRAX analysis yields a 10-year probability of major osteoporotic fracture of 18.3% and a 10-year probability of hip fracture of 3.6%. Code 01895 Dictating Physician: DAYTON BOURGEOIS MD Electronically Signed by: DAYTON BOURGEOIS MD Dic Date/Time: 05/03/22 1155 Sign date/Time: 05/03/22 1157 Procedure Note Dayton Bourgeois MD - 05/18/2023 [facility] Diagnostic Imaging Department [address] [place] [id number] Patient: VIRGINIA GONZALEZ./Age/Sex: 1945 - 76 - F Unit#: [id number] Location/Status: [facility]/REG I [facility] Ordering Physician: BHAVIN VSAQUEZ MD Adore Dexa Axial Skeleton - 05/03/221129 HISTORY: The patient is a 76-year-old postmenopausal female withclinical concern for metabolic bone disease. FINDINGS: Dual energy x-ray absorptiometry of the lumbar spine and femursis performed. The mean bone mineral density at L1-L4 is 1.272 gm/cm2 which is108% of that of young normals and 132% of that of age matched controls. Thisyields a T-score of 0.8 and a Z-score of 2.6 and there is therefore no evidenceof osteoporosis or osteopenia here. The mean bone mineral density of the femurs bilaterally is 0.911 gm/wd2wpexx is 90% of that of young normals and 118% of that of age matched controls.This yields a T-score of -0.8 and a Z-score of 1.1 and there is therefore noevidence of osteoporosis or osteopenia here. However, the T-score of the rightfemoral neck is -1.5 and that of the left femoral neck is -1.2 which is diagnosticof osteopenia. IMPRESSION: 1. Osteopenia. There has been an increase of 4.8% in bone mineral densityin the lumbar spine since the prior examination of 04/19/2020. There has beenan increase of 2.6% in bone mineral density in the right femur and anincrease of 3.3% in bone mineral density in the left femur. 2. FRAX analysis yields a 10-year probability of major osteoporoticfracture of 18.3% and a 10-year probability of hip fracture of 3.6%. 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
== END 2025-01-07 07:37 | disposition home or self-care (01) ==
LOC: HO.HOSX 07:36
PROVIDERS: Visit Provider Orthopaedic Surgery
DX: M25.551 Pain in right hip (principal); M54.50 Low back pain, unspecified
CPT/HCPCS: 72170

== ENCOUNTER 2025-01-07 11:34 | Outpatient (AMB) | payer OTHER, SELFPAY ==
--- NOTE | 2025-01-07 11:49 | MHC.OFFVIS ---
Vital Signs 01/07/25 11:58 Height 5 ft 2 in Weight 125 lb BMI 22.9 Intake Visit Reasons: Right hip pain Intake Note: Virginia is a 79 year old woman who presents with complaints of pain along the lateral aspect of her right hip. The patient states that she did have an ultrasound-guided cortisone injection given into her right hip in August of 2024 which gave her several months worth of relief. The patient states that she has had an MRI which showed ?a labral tear?. She has been going to physical therapy in [place] which gives her mild relief. She denies any back pain. Allergies prednisone Adverse Reaction (Intermediate, Verified 01/07/25 11:58) Agitated Medication List - Last Reconciled 01/07/25 by Robert Klein MD carbidopa-levodopa 25-100 mg ER 1 tab PO BID rasagiline 1 mg PO DAILY sertraline 25 mg PO DAILY Physical Exam Vital Signs: BMI result Body Mass Index 22.9 Extrem Other: Right hip examination shows slightly decreased range of motion compared to her left, mild pain with range of motion, mild tenderness over her iliotibial band, no overlying skin lesions Results Reviewed Results Reviewed: X-rays of the patient's bilateral hips taken today show mild diffuse joint space narrowing, no acute bony abnormalities Assessment & Plan Assessment & Plan (1) Hip pain: Code(s): M25.559 - Pain in unspecified hip Category: Medical (2) Pain of right hip: Code(s): M25.551 - Pain in right hip Plan Ms. Gonzalez presents with right hip pain most likely due to iliotibial band syndrome as well as possible tearing of her right hip joint labrum. The patient does not wish to go back to [facility] for another injection. Thus, I will refer her to our pain management clinic here at [facility]. The patient may be a candidate for further injections. No surgery is indicated at this time. She will follow up with me on an as-needed basis. Feel free to call me at any time should questions regarding her orthopedic management arise. I spent 22 minutes in reviewing the patient's records and imaging studies, seeing the patient and documenting in the medical record. Orders: Orders XR lumbar spine 2-3V Today M54.50 - Low back pain, unspecified XR pelvis 1-2V Today M25.559 - Pain in unspecified hip Referrals Pain Management Referral M25.559 - Pain in unspecified hip Coding Level of Care Code New Pt Level 3 (30645) Complex EM visit Add On G2211 Diagnoses Hip pain M25.559 Pain of right hip M25.551
[2025-01-07 11:58] VITALS: BMI 22.9
== END 2025-01-07 12:34 | disposition home or self-care (01) ==
LOC: HO.HOS 11:35
PROVIDERS: Visit Provider Orthopaedic Surgery
DX: M25.559 Pain in unspecified hip (principal); M25.551 Pain in right hip
CPT/HCPCS: 99203

== ENCOUNTER → 2025-01-07 11:37 | Outpatient (BNV) | payer OTHER, SELFPAY | PROVIDERS: Visit Provider Family Medicine | DX: M16.0 Bilateral primary osteoarthritis of hip (principal) | CPT/HCPCS: 72170 ==

== ENCOUNTER 2025-02-06 10:20 | Outpatient (AMB) | payer OTHER, SELFPAY ==
--- OUTSIDE RECORDS SUMMARY | 2024-01-28 10:06 | XMS_ITS | Encounter Summary ---
Author Organization [facility] Address [address] [place] [address] Care Team Providers Care Yard Stocker Name Role Phone Lee Lindsay MD Primary Care Provider [phone] Encounter Details Date Type Department Care Team (Late st Contact Info) Description 01/28/2024 10:06 AM EDT Hospital Encounter TH HISTORIC ENCOUNTERS EASTERN CONVERSION ONLY Mayuri Warner MD [address] [place] [address] Social History Tobacco Use Types Packs/Day Years Used Date Smoking Tobacco: Never Smokeless Tobacco: Never Alcohol Use Standard Drinks/Week Comments Yes 1 (1 standard drink = 0.6 oz pur e alcohol) rare Interpersonal Safety Answer Date Record ed Physical Abuse Unrecognized value 12/18/2024 Verbal Abuse Unrecognized value 12/18/2024 Comments Unknown Sex and Gender Information Value Date Recorded Sex Assigned at Not on file Legal Sex Female 4:33 PM EST Gender Identity Not on file Sexual Orientation Not on file documented as of this encounter Last Filed Vital Signs Vital Sign Reading Time Taken Comments Blood Pressure 123/68 01/28/2024 10:16 AM EDT Sitting Left arm Pulse 75 01/28/2024 10:16 AM EDT Temperature - - Respiratory Rate - - Oxygen Saturation - - Inhaled Oxygen Concentration - - Weight 56.9 kg (125 lb 6.4 oz) 01/28/2024 10:16 AM EDT Height 157.5 cm (5' 2 ) 01/28/2024 10:1 6 AM EDT Body Mass Index 22.94 01/28/2024 10:16 AM EDT documented in this encounter Progress Notes * Mayuri Warner MD - 01/28/2024 10:15 AM EDT CHIEF COMPLAINT: Follow-up IDENTIFIER:Virginia Gonzalez is a 78 y.o. female. HPI: 78-year-old female, who has low-grade lymphoproliferative process, patient also have multiple other medical issues, patient recently incidentally found to have mild splenomegaly so referredto me for further evaluation. Patient recent labs are well within desired range ROS: No anorexia or weight loss No early satiety No chest pain shortness of breath No significant GI/ symptom She has been working on her Parkinson's, much better symptoms Patient had COVID infection and shingles after traveling to [place] few weeks ago PAST MEDICAL HISTORY: Past Medical History: Diagnosis Date ??? Cervicalgia ??? Hematuria ??? Hyperlipidemia ??? Hypertension ??? Monoclonal B-cell lymphocytosis ??? Parkinsonian syndrome (HCC) SOCIAL HISTORY: Social History Tobacco Use ??? Smoking status: Never ??? Smokeless tobacco: Never Substance Use Topics ??? Alcohol use: Yes Alcohol/week: 1.0 standard drink of alcohol Types: 1 Glasses of wine per week FAMILY HISTORY: Noncontributory Current Outpatient Medications: ??? carbidopa (LODOSYN) 25 MG tablet, Take 1 tablet by mouth 2 (two) times a day., Disp: , Rfl: ??? Multiple Vitamin (MULTI-VITAMIN DAILY PO), Take by mouth., Disp: , Rfl: ??? Rasagiline Mesylate (AZILECT) 1 MG TABS tablet, Take 1 tablet (1 mg total) by mouth daily., Disp: , Rfl: ??? sertraline (ZOLOFT) 25 MG tablet, Take 0.5 tablets (12.5 mg total) by mouth daily., Disp: , Rfl: ??? vitamin D3 (VITAMIN D3) 25 MCG (1000 UT) tablet, Take 1 tablet (1,000 Units total) by mouth daily., Disp: , Rfl: You are allergic to the following Date Reviewed: 01/28/2024 Allergen Reactions Prednisone Not Noted PHYSICAL EXAM: BP 123/68 (BP Location: Left arm) Pulse 75 Temp 98.3 ??F (36.8 ??C) (Temporal) Ht 5' 2 (1.575 m) Wt 56.9 kg (125 lb 6.4 oz) SpO2 97% BMI 22.94 kg/m?? ECOG 0-1 APPEARANCE: Alert and oriented in no acute distress EYES: nonicteric sclera pink conjunctiva ORAL CAVITY: No mucositis or thrush NECK: Neck supple, no cervical or supraclavicular adenopathy, HEART: normal S1 and S2 LUNG: clear to auscultation bilaterally LYMPH NODES: No palpable superficial adenopathy ABDOMEN: soft, nontender and no organomegaly appreciated EXTREMITIES: No edema erythema or tenderness No petechiae ecchymosis purpura LABS: WBC 12.2, hemoglobin 13.1 g, hematocrit 41.2% and platelet count 219 CT scan showed mild splenomegaly IMPRESSION: SNOMED CT(R) 1. Leukocytosis, unspecified type LEUKOCYTOSIS 2. Splenomegaly SPLENOMEGALY Patient is a 78-year-old female, who has multiple issues including Parkinson's disease, patient has very mild lymphocytosis may be very low-grade lymphoproliferative disease, patient incidentally found to have mild splenomegaly, which is consistent with her lymphoproliferative disease. I gave her reassurance that she does not need any therapeutic intervention. I explained patient detailabout low-grade lymphoproliferative process, most of these patient never needed any therapeutic intervention. PLAN: I will see her back in a year, I will check CBC with differential, LDH beta-2 microglobulin prior to next visit Mayuir Warner MD documented in this encounter Plan of Treatment Upcoming Encounters Date Type Department Care Team (Late st Contact Info) Description 03/23/2025 11:00 AM EST Office Visit Internal Medicine - [place] [address] [facility] [address] [place] [phone] Lee Lindsay MD 175 [facility] [address] [place] [address] 04/01/2025 11:00 AM EST Office Visit Gastroenterology - [address] [facility] [address] [facility] [address] [place] [phone] Ashli Rey NP [address] [address] 01/19/2026 10:45 AM EDT Office Visit [facility] Hematology Oncology [address] [place] [address] Mayuri Warner MD [address] [place] [address] documented as of this encounter Visit Diagnoses Not on filedocumented in this encounter Care Teams Yard Stocker Relationship Specialty Start Date End Date Lee Lindsay MD [address] [address] PCP - General Internal Medicine 04/26/18 documented as of this encounter
--- NOTE | 2025-02-06 10:41 | MHC.OFFVIS ---
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 The hip pain is primarily located on the right side, associated with the greater trochanter and iliotibial band. The patient reports that the pain has improved over time but remains a concern, especially when engaging in activities such as ballroom dancing and walking. The patient has a history of receiving a cortisone injection in the bursa, which initially provided four months of relief. However, the pain returned upon resuming physical activities, prompting further evaluation and consideration of additional interventions. The patient has undergone physical therapy, which has provided some improvement, but the pain recurs with increased activity. She has been advised to continue with stretching and strengthening exercises to manage the symptoms. 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 This condition has been managed with prior cortisone injections, which provided significant relief in the past. Pain Description - Onset: Pain primarily located on the right side, associated with the greater trochanter and iliotibial band - Quality: Described as a persistent ache with occasional throbbing - Exacerbating factors: Ballroom dancing, walking, and other physical activities - Relieving factors: Cortisone injections, physical therapy, and use of an IT band support Physical Exam - Appears afebrile. - Alert and oriented. - Mood and affect appropriate. - Follows and participates in conversation appropriately. - Pain along R GT and thigh Pain Management - Affect: Pain impacts activities such as ballroom dancing and walking - Analgesia: Cortisone injections have been used with initial relief; considering platelet-rich plasma injections - Activities of Daily Living: Pain limits physical activities, requiring modifications Physical Exam Vital Signs: Last Vital Signs Pulse 91 02/06/25 10:42 Resp 16 02/06/25 10:42 BP 126/72 02/06/25 10:42 Pulse Ox 94 02/06/25 10:42 Oxygen Delivery Method Room Air 02/06/25 10:42 BMI result Body Mass Index 23.0 Assessment & Plan Assessment & Plan (1) Greater trochanteric pain syndrome: Code(s): M25.559 - Pain in unspecified hip Category: Medical Plan Plan Patient was informed and verbally consented to the use of an ambient scribe for clinic note documentation during this visit. 1. Trochanteric Bursitis - Consideration of repeat cortisone injection if pain persists, with the option to perform the procedure in-office to reduce costs. Pretreat with valium for procedural anxiolysis. - Discussion of platelet-rich plasma injections as an alternative, though not covered by insurance. - Continued physical therapy focusing on stretching and strengthening exercises. 2. Iliotibial Band Syndrome - Use of IT band support to alleviate symptoms during physical activity. - Consideration of cortisone injection if symptoms persist. 3. Arthritis In The Lower Spine - Previous cortisone injections have provided relief; consider repeat injections if necessary. Discussion Notes I discussed with the patient the management options for her right hip pain, including the possibility of a repeat cortisone injection, which can be done in-office to minimize costs. We also explored the option of platelet-rich plasma injections, which are not covered by insurance but may offer longer-term benefits for tendon and soft tissue issues. The importance of continuing physical therapy with a focus on stretching and strengthening was emphasized to help manage her symptoms. Patient Instructions - Continue with physical therapy exercises focusing on stretching and strengthening. - Consider using an IT band support during physical activities to alleviate symptoms. - Schedule an appointment for a cortisone injection if pain persists. - Discuss with the doctor if interested in platelet-rich plasma injections. Medications: New diazepam (Valium) 5 mg PO ONCE PRN 1 tab 0RF sleep Coding Level of Care Code New Pt Level 4 (60991) Diagnoses Greater trochanteric pain syndrome M25.559
[2025-02-06 10:42] VITALS: BP 126/72; PULSE 91; RESP 16; O2SAT 94; BMI 23.0
--- OUTSIDE RECORDS SUMMARY | 2025-02-06 11:47 | XMS_ITS | Clinical Summary ---
Author Organization [facility] [place] Address [address] [place] [address] Care Team Providers Care Small Parts Assembler Name Role Phone Lee Lindsay MD Primary Care Provider [phone] Allergies Active Allergy Reactions Criticality Noted Date Comments Prednisone Low 01/11/2016 Angry Other reaction(s): Feeling Irritable Medications MULTIVITAMIN ORAL Take by mouth daily. Active CHOLECALCIFERO L, VITAMIN D3, ORAL Take 1,000 Units by mouth daily. Active sertraline (ZOLOFT) 25 mg tablet Take 1 tablet (25 mg total) by mouth 1 (one) time each day. 90 tablet 1 05/05/19 25 Active rasagiline (AZILECT) 1 mg tablet 06/23/19 25 Active carbidopa-levo dopa CR (SINEMET CR) 25-100 mg per CR tablet 07/01/19 25 Active polyethylene glycol (Golytely) 236-22.74-6.74 -5.86 gram solution Take 4L by mouth once for one dose. May substitue any PEG. Starting at 2PM the day before your procedure drink 1 8oz glasses at your own pace until you complete half of the gallon. Finish 2nd half of the gallon at 8PM. 4000 mL 12/05/19 25 025 Discontinued bisacodyL (DULCOLAX) 5 mg EC tablet Take 2 tablets by mouth right before beginning bowel prep. See instructions provided by the office 2 tablet 12/05/19 25 025 Discontinued LORazepam (ATIVAN) 0.5 mg tablet TAKE 1 TAB 1 HOUR PRIOR TO PROCEDURE. DO NOT TAKE AND DRIVE 08/26/19 25 025 Discontinued Active Problems Problem Noted Date Diagnosed Date COVID-19 12/10/2024 Osteopenia of spine 07/23/2024 Trochanteric bursitis of right hip 05/07/2024 Assessment & Plan (08/18/2024 3:34 PM EDT): Ongoing pain in the right hip area, failed cortisone shot due to pain .plans to do an IR guided procedure. 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 Vitamin D deficiency 03/29/2017 Encounters Date Type Department Care Team Description 02/04/2025 Telephone Internal Medicine - [place] [facility] [address] [place] [phone] Lee Lindsay MD 01/19/2025 10:30 AM EDT Office Visit [facility] Hematology Oncology [address] [place] [phone] Mayuri Warner MD Monoclonal B-cell lymphocytosis (Primary Dx); Splenomegaly 12/26/2024 Telephone Gastroenterology - 299 [facility] [address] [facility] [address] [place] [phone] Cecile Velasquez MD 12/18/2024 12:45 PM EDT Anesthesia Event [facility] Endoscopy [address] [place] [phone] Krishna Nicole MD 12/18/2024 12:17 PM EDT - 12/18/2024 11:59 PM EDT Hospital Encounter [facility] Endoscopy [address] [place] [phone] Krishna Nicole MD Sampson, Joanna, MD Couture, Alison, CRNA Nausea; Dyspepsia; Personal history of hyperplastic colon polyps Discharge Disposition: Home or Self Care 12/12/2024 9:40 AM EDT Office Visit Gastroenterology - [address] [phone] Cecile Velasquez MD Dyspepsia (Primary Dx); Colon cancer screening 12/12/2024 Telephone Gastroenterology - [address] [phone] Cecile Velasquez MD 12/04/2024 Telephone Gastroenterology - [address] [phone] Cecile Velasquez MD from Last 3 Months Immunizations Immunization Administration Dates Next Due [employer] Local SARS-CoV-2 COVID -19, vector-nr, rS-Ad26, preservative free 06/26/2020 Pneumococcal conjugate 13 va lent (Prevnar 13, PCV13) 2mo and older 02/22/2016 Zoster Live 06/10/2010 Surgical History Surgery Date Site/Laterality Comments CYST REMOVAL PROCEDURE:CYST REMOVAL;COMMENT:from right breast COLONOSCOPY 04/16/2015 - 05/16/2015 Dr. Mares small TA APPENDECTOMY july 2023 Medical History Medical [...] Sign Reading Time Taken Comments Blood Pressure 148/80 01/19/2025 10:16 AM EDT Pulse 84 01/19/2025 10:16 AM EDT Temperature 36.9 C (98.4 F) 01/19/2025 10:16 AM EDT Respiratory Rate 14 12/18/2024 1:32 PM EDT Oxygen Saturation 100% 01/19/2025 10:16 AM EDT Inhaled Oxygen Concentration - - Weight 58.1 kg (128 lb) 01/19/2025 10:16 AM EDT Height 157.5 cm (5' 2 ) 01/19/2025 10:16 AM EDT Body Mass Index 23.41 01/19/2025 10:16 AM EDT Plan of Treatment Upcoming Encounters Date Type Department Care Team (Late st Contact Info) Description 03/23/2025 11:00 AM EST Office Visit Internal Medicine - [place] 175 [facility] [address] [place] [phone] Lee Lindsay MD 175 [facility] [place] [address] [place] [address] 04/01/2025 11:00 AM EST Office Visit Gastroenterology - 299 [place] [address] [facility] [address] [place] [phone] Ashli Rey, LASHON 175 [facility] [place] [address] [place] [address] 01/19/2026 10:45 AM EDT Office Visit [facility] Hematology Oncology [address] [place] [phone] Mayuri Warner MD [address] [place] [address] Health Maintenance Due Date Last Done Comments DTaP,Tdap,and Td Vaccines (1 - Tdap) 1964 Zoster Vaccines (1 of 2) 08/05/2010 06/10/2010 Pneumococcal Vaccine: 50+ Years (2 of 2 - PCV20 or PCV21) 02/21/2017 02/22/2016 Hepatitis C Screening 03/10/2020 Social [...] Procedure Name Priority Date/Time Associated Diagnosis Comments CBC WITH AUTO DIFFERENTIAL Routine 01/14/2025 9:34 AM EDT Spondylolisthesis at L4-L5 level Monoclonal B-cell lymphocytosis CBC AND DIFFERENTIAL Routine 01/14/2025 9:34 AM EDT Spondylolisthesis at L4-L5 level Monoclonal B-cell lymphocytosis IMMUNOGLOBULIN IGA Routine 01/14/2025 9: 34 AM EDT Spondylolisthesis at L4-L5 level Monoclonal B-cell lymphocytosis IMMUNOGLOBULIN IGG Routine 01/14/2025 9: 34 AM EDT Spondylolisthesis at L4-L5 level Monoclonal B-cell lymphocytosis BETA 2 MICROGLOBULIN, SERUM Routine 01/14/2025 9:34 AM EDT Spondylolisthesis at L4-L5 level Monoclonal B-cell lymphocytosis LACTATE DEHYDROGENASE Routine 01/14/2025 9:34 AM EDT Spondylolisthesis at L4-L5 level Monoclonal B-cell lymphocytosis COLONOSCOPY Routine 12/18/2024 1:11 PM EDT Personal history of hyperplastic colon polyps EGD Routine 12/18/2024 1:11 PM EDT Nausea Dyspepsia TISSUE EXAM Routine 12/18/2024 12:51 PM EDT Nausea Dyspepsia Personal history of hyperplastic colon polyps COMPREHENSIVE METABOLIC PANEL Routine 07/29/2024 9:35 AM EDT Preventative health care LIPID PANEL WITH REFLEX TO DIRECT LDL Routine 07/29/2024 9:35 AM EDT Preventative health care [facility] SCREENING DIGITAL Routine 11/20/2023 10:36 AM EDT Encounter for screening mammogram for malignant neoplasm of breast [facility] DEXA AXIAL SKELETON Routine 05/03/2022 11:57 AM EST Encounter for screening for osteoporosis from Last 3 Months or Most Recently Relevant to Health Maintenance Results * (ABNORMAL) CBC auto differential (01/14/2025 9:34 AM EDT) WBC 11.0(H) 4.8 - 10.8 K/mcL LAB HEMETOLOGY METHOD 01/14/2025 11:50 AM [facility] RBC 4.60 3.80 - 4.80 M/mcL LAB HEMETOLOGY METHOD 01/14/2025 11:50 AM [facility] Hemoglobin 13.1 11.5 - 16.0 g/dL LAB HEMETOLOGY METHOD 01/14/2025 11:50 AM [facility] Hematocrit 41.2 35.0 - 47.0 % LAB HEMETOLOGY METHOD 01/14/2025 11:50 AM [facility] MCV 88.8 79.0 - 98.0 FL LAB HEMETOLOGY METHOD 01/14/2025 11:50 AM [facility] MCH 28.2 27.0 - 32.0 pcg LAB HEMETOLOGY METHOD 01/14/2025 11:50 AM [facility] MCHC 31.8(L) 32.0 - 37.0 g/dL LAB HEMETOLOGY METHOD 01/14/2025 11:50 AM [facility] RDW 14.1 11.0 - 15.0 % LAB HEMETOLOGY METHOD 01/14/2025 11:50 AM [facility] Platelets 142 130 - 400 K/mcL LAB HEMETOLOGY METHOD 01/14/2025 11:50 AM [facility] MPV 10.6 7.0 - 11.0 FL LAB HEMETOLOGY METHOD 01/14/2025 11:50 AM [facility] NRBC 0.0 <1.0 % LAB HEMETOLOGY METHOD 01/14/2025 11:50 AM [facility] NRBC Absolute 0.00 <0.10 K/mcL LAB HEMETOLOGY METHOD 01/14/2025 11:50 AM [facility] Neutrophils Relative 43.3 % LAB HEMETOLOGY METHOD 01/14/2025 11:50 AM [facility] Lymphocytes Relative 44.6 % LAB HEMETOLOGY METHOD 01/14/2025 11:50 AM [facility] Monocytes Relative 9.3 % LAB HEMETOLOGY METHOD 01/14/2025 11:50 AM [facility] Eosinophils Relative 1.7 % LAB HEMETOLOGY METHOD 01/14/2025 11:50 AM [facility] Basophils Relative 0.7 % LAB HEMETOLOGY METHOD 01/14/2025 11:50 AM [facility] Immature Granulocytes Relative 0.4 % LAB HEMETOLOGY METHOD 01/14/2025 11:50 AM [facility] Neutrophils Absolute 4.78 1.50 - 7.00 K/mcL LAB HEMETOLOGY METHOD 01/14/2025 11:50 AM [facility] Lymphocytes Absolute 4.91 1.00 - 5.00 K/[facility] LAB HEMETOLOGY METHOD 01/14/2025 11:50 AM EDT [facility] Monocytes Absolute 1.02(H) 0.20 - 1.00 K/[facility] LAB HEMETOLOGY METHOD 01/14/2025 11:50 AM EDT [facility] Eosinophils Absolute 0.19 0.00 - 0.50 K/[facility] LAB HEMETOLOGY METHOD 01/14/2025 11:50 AM EDT [facility] Basophils Absolute 0.08 0.00 - 0.20 K/[facility] LAB HEMETOLOGY METHOD 01/14/2025 11:50 AM EDT [facility] Immature Granulocytes Absolute 0.04(H) 0.00 - 0.03 K/[facility] LAB HEMETOLOGY METHOD 01/14/2025 11:50 AM EDT [facility] Blood Venous blood specimen / Unknown Venipuncture / Unknown 01/14/2025 9:34 AM EDT 01/14/2025 11:34 AM EDT us Mayuri Warner MD LAB BLOOD ORDERABLES Final R esult Performing Organization Address City/[facility]/ZIP Co de Phone Number [facility] [address] [place] [address], * Lactate dehydrogenase (01/14/2025 9:34 AM EDT) LDH 195 120 - 246 unit/L LAB CHEMISTRY METHOD 01/14/2025 1:43 PM EDT [facility] Blood Venous blood specimen / Unknown Venipuncture / Unknown 01/14/2025 9:34 AM EDT 01/14/2025 11:35 AM EDT us Mayuri Warner MD LAB BLOOD ORDERABLES Final R esult [facility] [address] [place] [address], [place] [phone] * Immunoglobulin IgA (01/14/2025 9:34 AM EDT) [facility] IgA 118 61 - 348 mg/dL LAB CHEMISTRY METHOD 01/14/2025 1:43 PM EDT [facility] Blood Venous blood specimen / Unknown Venipuncture / Unknown 01/14/2025 9:34 AM EDT 01/14/2025 11:35 AM EDT us Mayuri Warner MD LAB BLOOD ORDERABLES Final R esult Performing Organization Address City/[facility]/ZIP Co de Phone Number [facility] [address] [place] [address], [place] [phone] * (ABNORMAL) Immunoglobulin IgG (01/14/2025 9:34 AM EDT) [facility] Total IgG 494(L) 549 - 1,584 mg/dL LAB CHEMISTRY METHOD 01/14/2025 1:43 PM EDT [facility] Blood Venous blood specimen / Unknown Venipuncture / Unknown 01/14/2025 9:34 AM EDT 01/14/2025 11:35 AM EDT Mayuri Warner MD LAB BLOOD ORDERABLES Final R esult [facility] [address] [place] [address], [place] [phone] * (ABNORMAL) Beta 2 microglobulin, serum (01/14/2025 9:34 AM EDT) [facility] Beta-2 Microglobulin 5.0(H) 0.7 - 1.8 mg/L LAB CHEMISTRY METHOD 01/14/2025 1:55 PM EDT [facility] Blood Venous blood specimen / Unknown Venipuncture / Unknown 01/14/2025 9:34 AM EDT 01/14/2025 11:35 AM EDT Mayuri Warner MD LAB BLOOD ORDERABLES Final R esult [facility] [address] [place] [address], [place] [phone] * COLONOSCOPY Anesthesia - MAC; [facility] ENDOSCOPY (12/18/2024 1:11 PM EDT) Anatomical Region [...] for surveillance. Narrative 12/18/2024 1:13 PM EDT [facility] GI Patient Name: Virginia Gonzalez Procedure Date: [...] not prolapse). Procedure Code(s): --- Professional --- 50480, Colonoscopy, flexible; with removal of tumor(s), polyp(s), or other lesion(s) by snare technique Diagnosis Code(s): --- Professional --- Z86.010, Personal history of colonic polyps D12.0, Benign neoplasm of cecum D12.4, Benign neoplasm of descending colon D12.3, Benign neoplasm of transverse colon (hepatic flexure or splenic flexure) CPT copyright 2020 [employer]. All rights reserved. The codes documented in this report are preliminary and upon temperature control inspector review may be revised to meet current compliance requirements. Cecile Velasquez MD 12/18/2024 1:13:31 PM This report has been signed electronically.Cecile Velasquez MD Number of Addenda: 0 Note Initiated On: 12/18/2024 12:56 PM Scope In: Scope Out: Endoscopy Department at [facility] - [address] [place] [phone] Procedure Note Cecile Velasquez MD - 12/18/2024 [facility] GI Patient Name: Virginia Gonzalez Procedure Date: [...] not prolapse). Procedure Code(s): --- Professional --- 77906, Colonoscopy, flexible; with removal of tumor(s), polyp(s), or other lesion(s) by snare technique Diagnosis Code(s): --- Professional --- Z86.010, Personal history of colonic polyps D12.0, Benign neoplasm of cecum D12.4, Benign neoplasm of descending colon D12.3, Benign neoplasm of transverse colon (hepatic flexure or splenic flexure) CPT copyright 2020 [employer]. All rights reserved. The codes documented in this report are preliminary and upon temperature control inspector reviewmay be revised to meet current compliance requirements. Cecile Velasquez MD 12/18/2024 1:13:31 PM This report has been signed electronically.Cecile Velasquez MD Number of Addenda: 0 Note Initiated On: 12/18/2024 12:56 PM Scope In: Scope Out: Endoscopy Department at [facility] - [address] [place] [phone] IMPRESSION: - The examined portion of the [...] Final Result * EGD Anesthesia - MAC; [facility] ENDOSCOPY (12/18/2024 1:11 PM EDT) Anatomical Region Laterality Modality Endoscopy 12/18/2024 12:4 0 PM EDT Impressions 12/18/2024 12:56 PM EDT - Normal esophagus. - Multiple fundic gland polyps. - Normal mucosa was found in the entire stomach. Biopsied. - Normal examined duodenum. Recommendation: - Continue present medications. - Await pathology results. Narrative 12/18/2024 12:56 PM EDT [facility] GI Patient Name: Virginia Gonzalez Procedure Date: [...] was normal. Procedure Code(s): --- Professional --- 74284, Esophagogastroduodenoscopy, flexible, transoral; with biopsy, single or multiple Diagnosis Code(s): --- Professional --- K31.7, Polyp of stomach and duodenum R10.13, Epigastric pain R11.0, Nausea CPT copyright 2020 [employer]. All rights reserved. The codes documented in this report are preliminary and upon temperature control inspector review may be revised to meet current compliance requirements. Cecile Velasquez MD 12/18/2024 12:55:56 PM This report has been signed electronically.Cecile Velasquez MD Number of Addenda: 0 Note Initiated On: 12/18/2024 12:40 PM Scope In: Scope Out: Endoscopy Department at [facility] - [address] [place] [phone] Procedure Note Cecile Velasquez MD - 12/18/2024 [facility] GI Patient Name: Virginia Gonzalez Procedure Date: [...] was normal. Procedure Code(s): --- Professional --- 06216, Esophagogastroduodenoscopy, flexible, transoral; with biopsy, single or multiple Diagnosis Code(s): --- Professional --- K31.7, Polyp of stomach and duodenum R10.13, Epigastric pain R11.0, Nausea CPT copyright 2020 [employer]. All rights reserved. The codes documented in this report are preliminary and upon temperature control inspector reviewmay be revised to meet current compliance requirements. Cecile Velasquez MD 12/18/2024 12:55:56 PM This report has been signed electronically.Cecile Velasquez MD Number of Addenda: 0 Note Initiated On: 12/18/2024 12:40 PM Scope In: Scope Out: Endoscopy Department at [facility] - [address] [place] [phone] IMPRESSION: - Normal esophagus. - Multiple fundic [...] polyp: - Hyperplastic polyp. 12/19/2024 10:55 AM [facility] Gross Description A. Gastric, Body, random [...] one slide. VICTOR MANUEL 12/19/2024 10:55 AM [facility] Disclaimer Unless otherwise specified, all tissue is 10% NB formalin fixed and paraffin embedded. 12/19/2024 10:55 AM [facility] Tissue Gastric corpus structure / Unknown 12/18/2024 12:51 PM EDT 12/18/2024 3:02 PM EDT Tissue specimen (specimen) Cecum structure / Unknown 12/18/2024 1:03 PM EDT 12/18/2024 3:02 PM EDT Tissue specimen (specimen) Transverse colon structure / Unknown 12/18/2024 1:07 PM EDT 12/18/2024 3:02 PM EDT Tissue specimen (specimen) Descending colon structure / Unknown 12/18/2024 1:07 PM EDT 12/18/2024 3:02 PM EDT Cecile Velasquez MD LAB PATHOLOGY ORDERABLES Final Result [facility] [address] [place] [address], [place] [phone] * (ABNORMAL) Lipid panel with reflex to direct LDL (07/29/2024 9:35 AM EDT) Cholesterol 207(H) 0 - 200 mg/dL LAB CHEMISTRY METHOD 07/29/2024 11:49 AM EDT [facility] Triglycerides 162(H) 0 - 150 mg/dL LAB CHEMISTRY METHOD 07/29/2024 11:49 AM EDT [facility] HDL 44 >=40 mg/dL LAB CHEMISTRY METHOD 07/29/2024 11:49 AM EDT [facility] LDL Calculated 131(H) 0 - 100 mg/dL LAB CHEMISTRY METHOD 07/29/2024 11:49 AM EDT [facility] VLDL Cholesterol Rommel 32.4 mg/dL LAB CHEMISTRY METHOD 07/29/2024 11:49 AM EDT [facility] Non HDL Chol. (LDL+VLDL) 163(H) <145 mg/dL LAB CHEMISTRY METHOD 07/29/2024 11:49 AM [facility] Chol/HDL Ratio 4.7(H) 0.0 - 4.4 LAB CHEMISTRY METHOD 07/29/2024 11:49 AM EDT [facility] Blood Venous blood specimen / Unknown Venipuncture / Unknown 07/29/2024 9:35 AM EDT 07/29/2024 11:29 AM EDT Lee Lindsay MD LAB BLOOD ORDERABLES Final Resul t [facility] [address] [place] [address], [place] [phone] * Comprehensive metabolic panel (07/29/2024 9:35 AM EDT) Sodium 141 133 - 145 mmol/L LAB CHEMISTRY METHOD 07/29/2024 11:49 AM [facility] Potassium 4.4 3.5 - 5.5 mmol/L LAB CHEMISTRY METHOD 07/29/2024 11:49 AM [facility] Chloride 106 96 - 110 mmol/L LAB CHEMISTRY METHOD 07/29/2024 11:49 AM [facility] CO2 32 21 - 32 mmol/L LAB CHEMISTRY METHOD 07/29/2024 11:49 AM [facility] Anion Gap 3 3 - 11 LAB CHEMISTRY METHOD 07/29/2024 11:49 AM [facility] Glucose 88 70 - 100 mg/dL LAB CHEMISTRY METHOD 07/29/2024 11:49 AM [facility] BUN 18 5 - 25 mg/dL LAB CHEMISTRY METHOD 07/29/2024 11:49 AM [facility] Creatinine 0.68 0.50 - 1.10 mg/dL LAB CHEMISTRY METHOD 07/29/2024 11:49 AM [facility] eGFR 89 >=60 mL/min/1. 73m2 LAB CHEMISTRY METHOD 07/29/2024 11:49 AM [facility] Comment:Calculation based on the Chronic Kidney Disease Epidemiology Collaboration (CKD-EPI) equation refit without adjustment for race. BUN/Creatinine Ratio 26.5 LAB CHEMISTRY METHOD 07/29/2024 11:49 AM [facility] Calcium 9.3 8.5 - 10.5 mg/dL LAB CHEMISTRY METHOD 07/29/2024 11:49 AM [facility] AST (SGOT) 22 10 - 42 unit/L LAB CHEMISTRY METHOD 07/29/2024 11:49 AM [facility] ALT (SGPT) 17 10 - 60 unit/L LAB CHEMISTRY METHOD 07/29/2024 11:49 AM EDT [facility] Alkaline Phosphatase 110 42 - 121 unit/L LAB CHEMISTRY METHOD 07/29/2024 11:49 AM EDT [facility] Total Protein 6.6 6.0 - 8.0 g/dL LAB CHEMISTRY METHOD 07/29/2024 11:49 AM EDT [facility] Albumin 3.9 3.2 - 5.0 g/dL LAB CHEMISTRY METHOD 07/29/2024 11:49 AM EDT [facility] Total Bilirubin 0.7 0.0 - 1.4 mg/dL LAB CHEMISTRY METHOD 07/29/2024 11:49 AM EDT [facility] Blood Venous blood specimen / Unknown Venipuncture / Unknown 07/29/2024 9:35 AM EDT 07/29/2024 11:29 AM EDT us Lee Lindsay MD LAB BLOOD ORDERABLES Final Resul t [facility] [address] [place] [address], * [facility] SCREENING DIGITAL (11/20/2023 10:36 AM EDT) Anatomical Region Laterality Modality Mammography 11/20/2023 10:0 8 AM EDT Narrative 11/20/2023 10:36 AM EDT [facility] Diagnostic Imaging Department [address] [place] [address] Patient: VIRGINIA GONZALEZ/Age/Sex: 1945 - 78 - F Unit#: [id number] Location/Status: SPDIMAM/REG CLI Mnemonic/Ordering Site: [facility] Ordering Physician: BHAVIN VASQUEZ MD Adore Screening Digital - 11/20/23 - 1025 Report Status:Signed HISTORY: The patient is a 78-year-old female presenting for routine screening mammography. The patient underwent excisional biopsy of the right breast in 2005, pathology benign. FINDINGS: Full-field digital mammography of the breasts bilaterally consisting of tomosynthesis in MLO and CC projection is performed in the apstratae 2000-D unit. Computer aided detection utilizing the WeGame system was utilized. The breasts are again seen to be composed of a combination of fatty and fibroglandular elements (scattered areas of fibroglandular density, category B density as calculated with Appinionspara software), as also demonstrated on prior studies [...] Benign Finding PQRI CPT II 3342F Code 84779, 04544 PQRI 225 CPT II 7025F Dictating Physician: DAYTON BOURGEOIS MD Electronically Signed by: DAYTON BOURGEOIS MD Dic Date/Time: 11/20/23 1032 Sign date/Time: 11/20/23 1036 Procedure Note Dayton Bourgeois MD - 01/30/2024 [facility] Diagnostic Imaging Department [address] [place] [id number] Patient: VIRGINIA GONZALEZ /Age/Sex: 1945 - 78 - F Unit#: [id number] Location/Status: SPDIMA/REG CLI Mnemonic/Ordering Site: [facility] Ordering Physician: BHAVIN VASQUEZ MD Adore Screening Digital - 11/20/23 - 1025 Report Status:Signed HISTORY: The patient is a 78-year-old female presenting for routinescreening mammography. The patient underwent excisional biopsy of the right breastin 2005, pathology benign. FINDINGS: Full-field digital mammography of the breasts bilaterallyconsisting of tomosynthesis in MLO and CC projection is performed in the Olocodee 2000-D unit. Computer aided detection utilizing the iCAD system wasutilized. The breasts are again seen to be composed of a combination of fatty and fibroglandular elements (scattered areas of fibroglandular density,category B density as calculated with Virtual Command Volpara software), as also demonstratedon prior studies most [...] Benign Finding PQRI CPT II 3342F Code 83520, 02829 PQRI 225 CPT II 7025F Dictating Physician: DAYTON BOURGEOIS MD Electronically Signed by: DAYTON BOURGEOIS MD Dic Date/Time: 11/20/23 1032 Sign date/Time: 11/20/23 1036 us Bhavin Vasquez MD IMG BI PROCEDURES Final Result * [facility] DEXA AXIAL SKELETON (05/03/2022 11:57 AM EST) Anatomical Region Laterality Modality Mammography 05/03/2022 11:0 5 AM EST Narrative 05/03/2022 11:57 AM EST [facility] Diagnostic Imaging Department [address] [place] [address] Patient: VIRGINIA GONZALEZ Ama Hung[employer]./Age/Sex: 1945 - 76 - F Unit#: [id number] Location/Status: [facility] CLI Mnemonic/[facility] Ordering Physician: BHAVIN VASQUEZ MD [facility] Dexa Axial Skeleton - 05/03/22 - 1130 HISTORY: The patient is a [...] probability of hip fracture of 3.6%. Code 65727 Dictating Physician: DAYTON BOURGEOIS MD Electronically Signed by: DAYTON BOURGEOIS MD Dic Date/Time: 05/03/22 1155 Sign date/Time: 05/03/22 1157 Procedure Note Dayton Bourgeois MD - 05/18/2023 [facility] Diagnostic Imaging Department [address] [place] [address] Patient: VIRGINIA GONZALEZ/Age/Sex: 1945 - 76 - F Unit#: [id number] [facility] Mn[facility]onic/Ordering Site: [facility] Ordering Physician: BHAVIN VASQUEZ MD Adore Dexa Axial Skeleton - 05/03/22 - 1130 HISTORY: The patient is a [...] density of the femurs bilaterally is 0.911 gm/[id number] is 90% of that of young normals [...] probability of hip fracture of 3.6%. Code 65826 Dictating Physician: DAYTON BOURGEOIS MD Electronically Signed by: DAYTON BOURGEOIS MD Dic Date/Time: 05/03/22 1155 Sign date/Time: 05/03/22 1157 Bhavin Vasquez MD IM BI PROCEDURES Final Result from Last 3 Months or Most Recently Relevant to Health Maintenance Insurance [employer] Care Teams Small Parts Assembler Relationship Specialty Start Date End Date Lee Lindsay MD [address] [place] [id number] PCP - General Internal Medicine 04/26/18
--- OUTSIDE RECORDS SUMMARY | 2025-02-06 11:47 | XMS_ITS | Encounter Summary ---
Author Organization [facility] Address [address] [place] [address] Care Team Providers Care Casualty Insurance Claim Adjuster Name Role Phone Lee Lindsay MD Primary Care Provider [phone] Reason for Referral * Consultation (Routine) - Closed Specialty Diagnoses / Procedures Referred By Contac t Referred To Contact Neurology Diagnoses Parkinson's disease, unspecified whether dyskinesia present, unspecified whether manifestations fluctuate (CMS/HCC V24, CMS/HCC V28) Lee Lindsay MD [address] [address] Phone: tel: fax: [facility] - Neurology [address] [address] Phone: tel: fax: Referral ID Status Reason Start Date Expiration Date V isits Requested Visits Authorized [id number] Closed Specialty Services Required 02/04/2025 02/04/2026 1 1 Reason for Visit * Reason Onset Date Comments Referral 02/04/2025 Neurology Encounter Details Date Type Department Care Team ([facility] st Contact Info) Description 02/04/2025 Telephone Internal Medicine - [place] [address] [phone] Lee Lindsay MD 175 [facility] [address] [place] [address] Social History Tobacco Use Types Packs/Day Years [...] on file documented as of this encounter Progress Notes * Antonia Hanson - 02/04/2025 11:10 AM EDT Referral sent * Micah Omalley MA - 02/04/2025 9:49 AM EDT Pended Neuro Ref. * Lien Swift - 02/04/2025 9:16 AM EDT Needs a referral to see local neurologist, preferably Betty Tillman in [facility]. She sees one in [place] but wants to see a local one. -Has dx of Parkinson's. CB# [phone] documented in this encounter Plan of Treatment Upcoming Encounters Date Type Department Care Team (Late st Contact Info) Description 03/23/2025 11:00 AM EST Office Visit Internal Medicine - [place] 175 [facility] [address] [place] [phone] Lee Lindsay MD 175 [facility] [address] [address] [place] [address] 04/01/2025 11:00 AM EST Office Visit Gastroenterology - [facility] [address] [facility] [address] [place] [phone] Ashli Rey NP [address] [address] 01/19/2026 10:45 AM EDT Office Visit [facility] Hematology Oncology [address] [place] [address] Mayuri Warner MD [address] [place] [address] Scheduled Referrals Name Type Priority Associated Diagnoses Orde r Schedule Ambulatory referral to Neurology Outpatient Referral Routine Parkinson's disease, unspecified whether dyskinesia present, unspecified whether manifestations fluctuate (CMS/[facility] V24, CMS/[facility] V28) 1 Occurrences starting 02/04/2025 until 02/04/2026 documented as of this encounter Visit Diagnoses Diagnosis Parkinson's disease, unspecified whether dyskinesia present, unspecified whether manifestations fluctuate (CMS/HCC V24, CMS/HCC V28)- Primary documented in this encounter Additional Health Concerns Assessment Noted Time PHQ-9 Depression Total Score: 2 08/19/19 25 1:22 PM EDT documented as of this encounter Care Teams Casualty Insurance Claim Adjuster Relationship Specialty Start Date End Date Lee Lindsay MD [address] [address] PCP - General Internal Medicine 04/26/18 documented as of this encounter
--- OUTSIDE RECORDS SUMMARY | 2025-02-06 11:47 | XMS_ITS | Clinical Summary ---
Author Organization [facility] Address [address] [address] Phone Care Team Providers Care Pin Attacher Name Role Phone Lee Lindsay MD Primary Care Provider [phone] Shady Nova MD Unavailable [phone] Allergies Active Allergy Reactions Criticality Noted Date [...] Noted Date Diagnosed Date Parkinson's disease 06/29/2020 Immunizations Immunization Administration Dates Next Due COVID-19 (Pre-02/05) Unomy Vaccine, rS-Ad26, P F 06/26/2020 Social History [...] Info) Description 04/23/2025 2:30 PM EST Telemedicine [facility] Department of Neurology [address] [place] [address], [address] Floor, [address] [place] [address] Cuba Baker MD, PhD [address] [place] [address] [email or web address] Maintenance Due Date Last Done [...] PREFERRED PPO REPLACEMENT MEDICARE PREFERRED PPO REPLACEMENT MEDICARE PREFERRED PPO REPLACEMENT MEDICARE PREFERRED PPO REPLACEMENT MEDICARE PREFERRED PPO REPLACEMENT [employer] REPLAC[employer] REPLAC[employer] MEDICARE PREFERRED PPO REPLACEMENT Care Teams Pin Attacher Relationship Specialty Start Date End Date Lee Lindsay MD 175 [facility] [address] [place] [address] PCP - General Internal Medicine 02/10/19 Shady Nova MD 175 [place] [address] Neurology 07/27/22 Additional Source Comments The information contained in this document represents components of the legal health record. It is not the complete legal health record.[facility]
--- OUTSIDE RECORDS SUMMARY | 2025-02-06 11:47 | XMS_ITS | Clinical Summary ---
Author Organization [facility] Address [address] [place] [address] Care Team Providers Care Granite Setter Name Role Phone Lee Lindsay MD Primary [...] age to complete this topic Care Teams Granite Setter Relationship Specialty Start Date End Date Lee Lindsay MD PCP - General Internal Medicine 07/23/18
== END 2025-02-06 11:32 | disposition home or self-care (01) ==
LOC: HO.PMC 10:20
PROVIDERS: PCP Internal Medicine; Visit Provider Internal Medicine
DX: M25.551 Pain in right hip (principal)
CPT/HCPCS: 99204